=== PATIENT | female | born 1940 | race Two or more races ===

== ENCOUNTER 2018-05-18 05:50 | Day surgery (SDC) | payer OTHER ==
[~2018-05-18 05:50] MED LIST: ASPIR 8181 MG PO; AZITHROMYCIN500 MG PO; BENZONATATE PO; NORVASC10 MG PO; PNEU16DI2; PREDISONE PO; SORBUGEN NR 15474 ML PO; SYNTHROID88 MCG PO
== END 2018-05-18 13:00 | disposition home or self-care (01) ==
LOC: CIR.AMB 05:50
DX: N85.8 Other specified noninflammatory disorders of uterus (principal); R10.2 Pelvic and perineal pain

== ENCOUNTER 2023-04-09 09:07 | Emergency (ER) | payer OTHER ==
[~2023-04-09] VITALS: Ht 157.5 cm; Wt 54.4 kg
[2023-04-09] MEDS ORDERED: COZAAR25 MG PO (09:38)
== END 2023-04-09 10:58 | disposition home or self-care (01) ==
LOC: ER 09:07
DX: U07.1 COVID-19 (principal); J00 Acute nasopharyngitis [common cold]; I10 Essential (primary) hypertension; E03.8 Other specified hypothyroidism

== ENCOUNTER 2023-09-08 11:52 | Emergency (ER) | payer OTHER ==
[~2023-09-08] VITALS: Ht 152.4 cm; Wt 54.4 kg
[~2023-09-08 11:52] MED LIST changes: +COZAAR25 MG PO
[2023-09-08 13:16] LABS: HEMATOCRIT 45.6 % (36.0-45.00); HEMOGLOBIN 15.4 g/dL (12.0-15.00); MEAN CELL VOLUME 93.2 fL (80.00-100.00); MEAN CORPUSCULAR HEMOGLOBIN 31.5 pg (27.00-32.0); MEAN CORPUSCULAR HGB CONC 33.8 g/dl (32.0-36.0); PLATELET COUNT 169 K/uL (150-450); RED BLOOD COUNT 4.89 M/uL (4.00-6.00); RED CELL DISTRIBUTION WIDTH 15.1 % (11.5-14.5)
[2023-09-08 13:51] LABS: CALCIUM 10.1 mg/dL (8.5-10.1); CREATININE SERUM 1.09 mg/dL (0.55-1.02); GFR 48.05; POTASSIUM 4.73 mEq/L (3.5-5.1)
== END 2023-09-08 14:19 | disposition left against medical advice (07) ==
LOC: ER 11:52
PROVIDERS: Emergency Medicine
DX: R42 Dizziness and giddiness (principal); E03.9 Hypothyroidism, unspecified; I10 Essential (primary) hypertension